=== PATIENT | female | born 1975 | race Caucasian/White ===

== ENCOUNTER 2017-10-30 07:33 | Emergency (ER) | payer SELFPAY ==
--- NOTE | 2017-10-30 08:35 | ED.PDOC ---
History of Present Illness - General Chief Complaint: Back Pain or Injury Stated Complaint: midscapular back pain Time Seen by Provider: 10/30/17 08:18 Source: patient Exam Limitations: no limitations Additional Information: PT WAS HELPING HER UP A BOAT DOCK WHEN SHE SLIPPED INJURING HER BACK. C/ O PAIN TO UPPER/MID THORACIC AREA. - History of Present Illness Timing/Duration: other - YESTERDAY Quality/Severity: mild Back Pain Location: T-spine Improving Factors: nothing Worsening Factors: nothing Allergies/Adverse Reactions: Allergies Sulfa Antibiotics Allergy (Verified 10/30/17 08:00) Home Medications: Ambulatory Orders Cyclobenzaprine HCl [Flexeril] 10 mg PO TID PRN #15 tab 10/30/17 Indomethacin 50 mg PO TID PRN #14 cap 10/30/17 Review of Systems - Review of Systems Constitutional: Denies: chills, fever EENTM: States: no symptoms reported Respiratory: Denies: cough, short of breath Cardiology: States: no symptoms reported Gastrointestinal/Abdominal: Denies: nausea, vomiting Musculoskeletal: States: back pain. Denies: neck pain Skin: States: no symptoms reported Neurological: Denies: paresthesia, tingling, weakness Past Medical History (General) - Patient Medical History Hx Seizures: No Hx Stroke: No Hx Asthma: Yes Hx of COPD: No Hx Cardiac Disorders: No Hx Congestive Heart Failure: No Hx Pacemaker: No Hx Thyroid Disease: No Hx Diabetes: No Hx Gastroesophageal Reflux: No Hx Renal Disease: No Surgical History: no surgical history - Female History Patient is a Female of Child Bearing Age (10 -59 yrs old): Yes Patient : No Family Medical History - Family History Mother Family History: No Known Physical Exam - Physical Exam General Appearance: Alert, Comfortable, No apparent distress Eyes, Ears, Nose, Throat Exam: PERRL/EOMI, normal ENT inspection Neck Exam: non-tender, full range of motion Back Exam: normal inspection, other - MILD TTP UPPER THORACIC SPINE, MILD MIDLINE TTP, NO BONY DEFORMITY, NO SPASM, NO EVIDENCE OF TRAUMA Extremity Exam: no evidence of injury, normal range of motion Neurologic: no motor/sensory deficits, alert Skin Exam: normal color, warm/dry Progress - EKG/XRAY/CT XRAY: T SPINE SAMREEN Departure - Departure Clinical Impression: Contusion of unspecified back wall of thorax, initial encounter Time of Disposition: :25 Disposition: Discharge to Home or Self Care Condition: Good Departure Forms: ED Discharge - Pt. Copy, Patient Portal Self Enrollment, Work Release Form Instructions: DI for Back Strain or Sprain Prescriptions: Cyclobenzaprine HCl [Flexeril] 10 mg PO TID PRN #15 tab PRN Reason: Pain Indomethacin 50 mg PO TID PRN #14 cap PRN Reason: Pain Home Medications: Ambulatory Orders Cyclobenzaprine HCl [Flexeril] 10 mg PO TID PRN #15 tab 10/30/17 Indomethacin 50 mg PO TID PRN #14 cap 10/30/17 Additional Instructions: RETURN TO WORK 10/31/2017
--- NOTE | 2017-10-30 09:15 | RAD ---
EXAM DESCRIPTION: Thoracic Spine,AP Lateral CLINICAL HISTORY: 42 years Female, FALL WITH PAIN COMPARISON: None. FINDINGS: 3 views of the thoracic spine show no vertebral body fracture or subluxation. There are small marginal osteophytes at a few levels in the midthoracic spine with slight disc space narrowing at the same levels. There are more advanced degenerative changes at a few levels in the lower cervical spine, including degenerative disc disease at C5-6 and C6-7. Minimal S-shaped scoliosis of the thoracic spine is also noted. No posterior rib abnormality. IMPRESSION: Mild degenerative changes at several levels in the midthoracic spine with slight S-shaped scoliosis. More advanced degenerative changes at several levels in the lower cervical spine. Electronically signed by: Carlos Betancourt MD 10/30/2017 9:14 AM CDT
[2017-10-30 09:49] VITALS: BP 128/86; TEMP 97.8; O2SAT 92
== END 2017-10-30 09:45 | disposition home or self-care (01) ==
LOC: ER 07:33
DX: S20.229A Contusion of unspecified back wall of thorax, initial encounter (principal); W01.0XXA Fall on same level from slipping, tripping and stumbling without subsequent striking against object, initial encounter; Y92.89 Other specified places as the place of occurrence of the external cause